=== PATIENT | female | born 1975 | race Caucasian/White ===

== ENCOUNTER 2020-06-12 14:00 | Inpatient (IN) ==
[2020-06-12 14:50] LABS: Basophils # (auto) 0.04 K/uL (0-0.2); Basophils % (auto) 0.4 %; Eosinophils # (auto) 0.14 K/uL (0-0.5); Eosinophils % (auto) 1.3 %; Hematocrit (blood only) 44.3 % (37-47); Hemoglobin 15.1 g/dL (12.0-16.0); Immature Granulocytes # (auto) 0.04 K/uL (0.00-0.02); Immature Granulocytes % (auto) 0.4 %; Lymphocytes # (auto) 2.76 K/uL (1.2-3.4); Lymphocytes % (auto) 24.9 %; Mean Corpuscular Hemoglobin 31.8 pg (25-34); Mean Corpuscular Hgb Conc 34.1 g/dL (32-36); Mean Corpuscular Volume 93.3 fL (80-100); Mean Platelet Volume 9.1 fL (7.4-10.4); Monocytes # (auto) 0.76 K/uL (0.11-0.59); Monocytes % (auto) 6.8 %; Neutrophils # (auto) 7.36 K/uL (1.4-6.5); Neutrophils % (auto) 66.2 %; Platelet Count 366 K/uL (130-400); RDW Coefficient of Variation 13.2 % (11.5-14.5); RDW Standard Deviation 45.4 fL (36.4-46.3); Red Blood Count 4.75 M/uL (4.2-5.4)
[2020-06-12 15:07] LABS: Albumin Level 3.7 gm/dl (3.4-5.0); BUN Creatinine Ratio 13.5 (10-20); Calcium 8.9 mg/dl (8.5-10.1); Creatinine Clr Calc Pharmacy 104.2 ml/min; Est GFR (African American) 88.4; Est GFR (Non-African American) 76.3
[2020-06-12 15:10] LABS: Albumin Globulin Ratio 0.9 (0.9-2); Bilirubin,Total 0.5 mg/dl (0.2-1); Globulin 4.2 gm/dl (2.5-4.0); Total Protein 7.9 gm/dl (6.4-8.2)
[2020-06-12] MEDS ORDERED: diphenhydrAMINE 50 MG/ML VIAL IV STA (15:38)
[2020-06-12] MEDS ORDERED: PROCHLORPERAZINE 2 ML IV ONE (15:38)
--- NOTE | 2020-06-12 15:39 | XRay Report ---
XR chest 1V portable HISTORY: Malaise. illness COMPARISON: None. FINDINGS: The lungs are clear. Cardiac silhouette is normal in size. No pleural effusions. No pneumot horax. IMPRESSION: No acute process. ACT 112: Negative or not required by law. Electronically signed by: Haresh Vernon M.D. 06/12/2020 3:37 PM
[2020-06-12 15:58] LABS: Influenza A virus by PCR Negative (Neg); Influenza B virus by PCR Negative (Neg); RSV by PCR Negative (Neg); SARS CoV2 RNA(COVID-19) InHosp NEGATIVE (Negative)
[2020-06-12] MEDS ORDERED: HYDROmorphone INJ 0.5 MG/0.5 ML SYR IV STA (15:58)
[2020-06-12 17:54] LABS: Total Protein CSF 48.8 mg/dl (15-45)
[2020-06-12 18:05] LABS: CSF Count Tube # 4
[2020-06-12 18:06] LABS: Appearance CSF Clear
[2020-06-12 18:07] LABS: CSF Xanthrochromic No xanthochromia; Color CSF Colorless; Red Blood Cell CSF (A) 0 /uL (0-); Red Blood Cell CSF (B) 0 /uL (0-); White Blood Cell CSF (B) 158 /uL (0-5)
[2020-06-12 18:08] LABS: White Blood Cell CSF (A) 156 /uL (0-5)
[2020-06-12] MEDS ORDERED: VANCOMYCIN HCL 2,750 MG in SODIUM CHLORIDE 0.9% 500 ML IV ONE (18:17)
[2020-06-12] MEDS ORDERED: VANCOMYCIN CONSULT ACTIVE PRN (18:17)
[2020-06-12] MEDS ORDERED: cefTRIAXone SODIUM 2,000 MG/70 ML BAG IV STA (18:17)
[2020-06-12] MEDS ORDERED: ACYCLOVIR CONSULT ACTIVE PRN (18:41)
[2020-06-12] MEDS ORDERED: ACYCLOVIR SOD IV ONE (18:45)
[2020-06-12] MEDS ORDERED: DEXTROSE 5% IV ONE (18:45)
--- NOTE | 2020-06-12 19:21 | Fluoroscopy Report ---
FL lumbar puncture diagnostic CLINICAL HISTORY: 44 years-old Female with headache, pseudotumor. Acute headache PROCEDURE: The risks, benefits, and alternatives to the procedure is discussed with the patient who v oiced understanding. Written informed consent was obtained. The patient was placed prone on the fluor oscopy table. The lower back was prepped and draped in the usual sterile fashion. 1% lidocaine was us ed for local anesthesia. A 20-gauge spinal needle was inserted into the L4-L5 interlaminar space, and approximately 7 mL of clear colorless cerebrospinal fluid was removed. CSF return was delayed and du e to the patient experiencing nausea and restlessness, no additional fluid was obtained. There were n o immediate complications. The patient was then transported back to the emergency room for further wo rkup and treatment. Opening pressure was 15 cm H2O. Fluoroscopy time: 0.5 minutes. IMPRESSION: Successful fluoroscopic guided lumbar puncture. ACT 112: Negative or not required by law. The above report was generated using voice recognition software. It may contain grammatical, syntax o r spelling errors. Electronically signed by: Seth Murphy M.D. 06/12/2020 7:20 PM
--- NOTE | 2020-06-12 19:56 | Communication Note ---
Date of Service: June 12, 2020 Imaging reports from [facility] outpatient records: Brain MRI w/o contrast 06/06/20: IMPRESSION: 1. No acute infarction. 2. Several small foci of subcortical white matter T2 weighted hyperintensities bilaterally, the largest LEFT posterior frontal lobe, broad differential diagnosis as above. Brain MRI w/ contrast 06/08/20: IMPRESSION: 1. No pathologic enhancement of the head detected. No evidence of intracranial hypotension. 2. Given presence of white matter lesions, hearing and vision disturbance along with patient demographics, consider further clinical assessment to exclude Susac syndrome Head/Neck CTA 06/08/20: IMPRESSION: 1. No proximal large vessel occlusion or definitive focal aneurysm is identified. 2. origin of the right posterior cerebral artery. 3. No hemodynamically significant stenosis is identified within the common or extracranial internal carotid arteries. 4. Ascending aorta measures 4 cm in diameter. Vascular surgery consultation and a CTA of the chest may be performed for further evaluation. 5. Multilevel degenerative changes of the cervical spine as described, most prominent at C5-6. 6. Nonspecific mildly enlarged bilateral segment II lymph nodes. Clinical correlation is recommended.
[2020-06-12 20:07] LABS: Cryptococcus neoformans/ga PCR Not Detected (NotDetected); Cytomegalovirus PCR Not Detected (NotDetected); Enterovirus PCR Not Detected (NotDetected); Escherichia coli K1 PCR Not Detected (NotDetected); Haemophilius influenzae PCR Not Detected (NotDetected); Herpes Simplex Virus 1 PCR Not Detected (NotDetected); Herpes Simplex Virus 2 PCR Not Detected (NotDetected); Human Herpes Virus 6 PCR Not Detected (NotDetected); Human Parechovirus PCR Not Detected (NotDetected); Listeria monocytogenes PCR Not Detected (NotDetected); Neisseria meningitidis PCR Not Detected (NotDetected); Streptococcus agalactiae PCR Not Detected (NotDetected); Streptococcus pneumoniae PCR Not Detected (NotDetected)
[2020-06-12 20:12] LABS: Varicella Zoster Virus PCR DETECTED (NotDetected)
[2020-06-12 20:25] LABS: Bilirubin Urine Negative (Negative); Blood Urine Negative (Negative); Color Urine Yellow; Glucose Urine UA Negative (Negative); Ketones Urine Negative (Negative); Leukocyte Esterase Urine Negative (Negative); Nitrite Urine Negative (Negative); Protein Urine Negative (Negative); Specific Gravity Urine 1.017 (1.000-1.030); Urobilinogen Urine Negative (Negative)
[2020-06-12 20:26] LABS: Appearance Urine Clear (Clear)
--- NOTE | 2020-06-12 21:15 | History & Physical Report ---
Date of Service June 12, 2020 Assessment & Plan (1) Aseptic meningitis: Secondary to varicella Pt presents w/ headache, rash and low grade fever of 10 days brain images obtained and r/o 'ed acute process such as hemorrhage, mass or thrombus now presents in the ED for further eval - underwent LP opening pressure not elevated CSF positive for WBC 156, protein 48 and CSF PCR positive for VZV Pt started on empiric Abx in the ED, will continue vanco, ceftriaxone until final cultx available Add Acyclovir encourage po fluid intake and give IVF to prevent renal injury from acyclovir ID and neurology consulted Ascending aorta 4cm - incidental finding - will obtain echo for now - pt will likely need CTA chest for further evaluation and vascular consult - monitor renal function in the setting of treatment with acyclovir and poss. study w/ contrast Dispo: likely home when medically stable. Pt's updated at the bedside. Code: Full History of Present Illness Chief Complaint: headache, malaise Primary Care Provider: Rebeca Fontana MD Mrs. Figueredo is a 44 y/o F w/hx of migraines who presents with headache and malaise. Pt reports that 10 days ago (06/02-06/03) she developed fever, rash on her chest and a headache. Rash was only on the right side of her chest started at sternum and went upward toward her shoulder, there were several vesicules that very itchy red but almost looked like acne. Her headache was worse than usual and she felt overall unwell. At night she developed chills. In several days later on 06/06, she noted flashes in her one eye and then the other eys as well. She developed muffled hearing. This was concerning for her so presented in the ED at [facility], where MRI was done. She was discharged and followed up with neurology next day. She had another MRI and CTA head done as well. She was prescribed topamax and prednisone and was advised to closely follow up with health care providers. Today however she felt worse overall, very weak, hardly able to stand. She feels that her headache is somewhat better actually but overall she feels worse. She also reports some discomfort when bending her neck, feels some pain down the spine. She called neurology about her symptoms and was advised to present to the ED. In the ED LP was obtained and pt was started on IV antiobiotics for presumed poss. meningitis. Allergies Allergy/AdvReac Type Severity Reaction Status Date / Time Sulfa (Sulfonamide Allergy Intermediate Rash Verified 06/12/20 16:37 Antibiotics) latex Allergy Mild Rash Verified 06/12/20 16:12 Narcotics AdvReac Intermediate Nausea,vomiting Uncoded 06/12/20 16:37 and chest pain Home Medications Medication Instructions Recorded Confirmed Type prochlorperazine maleate 10 mg PO Q8H PRN 06/12/20 06/12/20 History rizatriptan 10 mg PO DIRECTED PRN MDD 20 06/12/20 06/12/20 History MG/24 HOURS topiramate 25 mg PO HS 06/12/20 06/12/20 History trazodone 50 mg PO .HOLD 06/12/20 06/12/20 History Past Med/Surg History Medical History (Updated 06/13/20 @ 00:53 by Chet Hines MD) Migraine with aura Surgical History (Updated 06/12/20 @ 21:10 by Chet Hines MD) History of History of carpal tunnel surgery History of esophagogastroduodenoscopy (EGD) History of partial hysterectomy Hx of removal of ovary S/P colonoscopy Family History (Updated 06/12/20 @ 21:08 by Chet Hines MD) Mother Breast cancer Sister Breast cancer Brother Diabetes Father Diabetes Father Hypertension Daughter Asthma Mother Migraines Daughter Migraines Social History Smoking Status: Current every day smoker Tobacco Cessation Education Requested by Patient: No Hx Alcohol Use: Yes Hx Substance Use: No Preferred Language: Serbian Communication Ability: Effective Beliefs That Will Affect Care: None Current Living Situation: Spouse Other Information That Helps Us Care for You: No Feels Safe at Home: Yes Safety Concerns: Feels Safe At This Time Review of Systems Review of Systems: All systems reviewed & are unremarkable except as noted in HPI & below Constitutional: + fever (on and off) and + fatigue Eyes: + flashes Ear, Nose, Mouth, Throat: muffled hearing Respiratory: no cough and no dyspnea Cardiovascular: no chest pain and no palpitations Gastrointestinal: no abdominal pain, no nausea and no vomiting Integumentary: + Vesicular rash on chest Psychiatric: no problem reported Physical Exam Constitutional: WD/WN, vitals as above + obese Eyes: PERRL, conjunctivae normal, anicteric sclerae ENMT: external ear and nose normal, oropharynx normal Neck: trachea midline, no thyromegaly normal visual inspection Respiratory: normal respiratory effort, lungs clear to auscultation Auscultation: no crackles, no rhonchi and no wheezes Cardiovascular: RRR, no murmur, no edema Chest (Breasts): Chest: normal inspection of chest Gastrointestinal (Abdomen): Inspection/Auscultation: abdomen normal to inspection and normal bowel sounds; abdomen not distended Percussion/Palpation: abdomen soft; abdomen nontender, no guarding and abdomen not rigid Musculoskeletal: no cyanosis or clubbing, extremities motor strength 5/5 Head/Neck/Chest: normocephalic and head atraumatic Skin: + rash (right upper chest, dried vesicles) Neurologic: PERRL, EOMI, accommodation nl, no face palsy, no dysarthria moves all extremities and awake Motor/Sensory: no tremor neck flexion causes discomfort down the spine Psychiatric: A+Ox3, euthymic affect Genitourinary: no CVA tenderness Lymphatic: no lymphedema Results & Data Results & Data ([facility]) Vital Signs (Past 12 Hours) Vital Signs Temp Pulse Resp BP BP Pulse Ox 06/12/20 20:08 87 16 97 06/12/20 19:30 89 22 122/88 100 06/12/20 19:00 88 15 154/77 H 96 06/12/20 18:30 77 17 144/86 H 98 06/12/20 18:26 78 14 149/87 H 99 06/12/20 18:00 75 18 149/87 H 96 06/12/20 17:30 73 16 133/97 98 06/12/20 17:23 80 20 127/71 99 06/12/20 17:22 99 06/12/20 16:30 96 H 17 132/80 96 06/12/20 16:00 85 18 129/90 99 06/12/20 15:37 18 122/88 06/12/20 15:30 92 H 16 122/88 99 06/12/20 15:24 99 H 21 99 06/12/20 15:16 86 15 152/98 H 100 06/12/20 14:04 36.3 C L 106 H 20 144/101 H 100 Laboratory Results 06/12/20 06/12/20 06/12/20 Range/Units 20:13 17:00 17:00 WBC (4.8-10.8) K/uL RBC (4.2-5.4) M/uL Hgb (12.0-16.0) g/dL Hct (37-47) % MCV (80-100) fL MCH (25-34) pg MCHC (32-36) g/dL RDW Std Deviation (36.4-46.3) fL RDW Coeff of Haydee (11.5-14.5) % Plt Count (130-400) K/uL MPV (7.4-10.4) fL Immature Gran % (Auto) % Neut % (Auto) % Lymph % (Auto) % Grimes % (Auto) % Eos % (Auto) % Baso % (Auto) % Neut # (Auto) (1.4-6.5) K/uL Lymph # (Auto) (1.2-3.4) K/uL Grimes # (Auto) (0.11-0.59) K/uL Eos # (Auto) (0-0.5) K/uL Baso # (Auto) (0-0.2) K/uL Immature Gran # (Auto) (0.00-0.02) K/uL Sodium (136-145) mmol/L Potassium (3.5-5.1) mmol/L Chloride (98-107) mmol/L Carbon Dioxide (21-32) mmol/L Anion Gap (3-11) BUN (7-18) mg/dl Creatinine (0.6-1.2) mg/dl Est Cr Clr Drug Dosing ml/min Est GFR ( Amer) Est GFR (Non-Af Amer) BUN/Creatinine Ratio (10-20) Glucose (70-99) mg/dl Calcium (8.5-10.1) mg/dl Total Bilirubin (0.2-1) mg/dl AST (15-37) U/L ALT (12-78) U/L Alkaline Phosphatase (45-117) U/L Total Protein (6.4-8.2) gm/dl Albumin (3.4-5.0) gm/dl Globulin (2.5-4.0) gm/dl Albumin/Globulin Ratio (0.9-2) Urine Color Yellow Urine Appearance Clear (Clear) Urine pH 5.0 (4.5-7.5) Ur Specific [place] 1.017 (1.000-1.030) Urine Protein Negative (Negative) Urine Glucose (UA) Negative (Negative) Urine Ketones Negative (Negative) Urine Blood Negative (Negative) Urine Nitrite Negative (Negative) Urine Bilirubin Negative (Negative) Urine Urobilinogen Negative (Negative) Ur Leukocyte Esterase Negative (Negative) Fld Lyme DNA (PCR) Fluid Comment CSF Appearance CSF Color Xanthrochromic CSF WBC (0-5) /uL CSF RBC (0-) /uL CSF Cell Count Tube # CSF Mononuclear WBCs % CSF Polynuclear WBCs % CSF Chemistry Tube # CSF Glucose (40-70) mg/dl CSF Total Protein (15-45) mg/dl CSF C.neoform/gat PCR Not Detected (NotDetected) CSF CMV DNA (PCR) Not Detected (NotDetected) CSF Enterovirus (PCR) Not Detected (NotDetected) CSF E. coli K1 (PCR) Not Detected (NotDetected) CSF H. influenzae (PCR) Not Detected (NotDetected) CSF HSV I (PCR) Not Detected (NotDetected) CSF HSV II (PCR) Not Detected (NotDetected) CSF HHV 6 (PCR) Not Detected (NotDetected) CSF L.monocytogenes PCR Not Detected (NotDetected) CSF N. meningitidis PCR Not Detected (NotDetected) CSF Parechovirus (PCR) Not Detected (NotDetected) CSF S. agalactiae (PCR) Not Detected (NotDetected) CSF S. pneumoniae (PCR) Not Detected (NotDetected) CSF VZV DNA (PCR) DETECTED A* (NotDetected) Lyme Specimen Source COVID-19 Eval Order SARS-CoV-2 (PCR) (Negative) Herpes Simplex Culture Pending Influenza Type A (PCR) (Neg) Influenza Type B (PCR) (Neg) RSV (RT-PCR) (Neg) 06/12/20 06/12/20 06/12/20 Range/Units 17:00 17:00 17:00 WBC (4.8-10.8) K/uL RBC (4.2-5.4) M/uL Hgb (12.0-16.0) g/dL Hct (37-47) % MCV (80-100) fL MCH (25-34) pg MCHC (32-36) g/dL RDW Std Deviation (36.4-46.3) fL RDW Coeff of Haydee (11.5-14.5) % Plt Count (130-400) K/uL MPV (7.4-10.4) fL Immature Gran % (Auto) % Neut % (Auto) % Lymph % (Auto) % Grimes % (Auto) % Eos % (Auto) % Baso % (Auto) % Neut # (Auto) (1.4-6.5) K/uL Lymph # (Auto) (1.2-3.4) K/uL Grimes # (Auto) (0.11-0.59) K/uL Eos # (Auto) (0-0.5) K/uL Baso # (Auto) (0-0.2) K/uL Immature Gran # (Auto) (0.00-0.02) K/uL Sodium (136-145) mmol/L Potassium (3.5-5.1) mmol/L Chloride (98-107) mmol/L Carbon Dioxide (21-32) mmol/L Anion Gap (3-11) BUN (7-18) mg/dl Creatinine (0.6-1.2) mg/dl Est Cr Clr Drug Dosing ml/min Est GFR ( Amer) Est GFR (Non-Af Amer) BUN/Creatinine Ratio (10-20) Glucose (70-99) mg/dl Calcium (8.5-10.1) mg/dl Total Bilirubin (0.2-1) mg/dl AST (15-37) U/L ALT (12-78) U/L Alkaline Phosphatase (45-117) U/L Total Protein (6.4-8.2) gm/dl Albumin (3.4-5.0) gm/dl Globulin (2.5-4.0) gm/dl Albumin/Globulin Ratio (0.9-2) Urine Color Urine Appearance (Clear) Urine pH (4.5-7.5) Ur Specific [place] (1.000-1.030) Urine Protein (Negative) Urine Glucose (UA) (Negative) Urine Ketones (Negative) Urine Blood (Negative) Urine Nitrite (Negative) Urine Bilirubin (Negative) Urine Urobilinogen (Negative) Ur Leukocyte Esterase (Negative) Fld Lyme DNA (PCR) Pending Fluid Comment CSF Appearance Clear CSF Color Colorless Xanthrochromic No xanthochromia CSF WBC 156 H* (0-5) /uL CSF RBC 0 (0-) /uL CSF Cell Count Tube # 4 CSF Mononuclear WBCs 100.0 % CSF Polynuclear WBCs 0.0 % CSF Chemistry Tube # 2 CSF Glucose 48 (40-70) mg/dl CSF Total Protein 48.8 H (15-45) mg/dl CSF C.neoform/gat PCR (NotDetected) CSF CMV DNA (PCR) (NotDetected) CSF Enterovirus (PCR) (NotDetected) CSF E. coli K1 (PCR) (NotDetected) CSF H. influenzae (PCR) (NotDetected) CSF HSV I (PCR) (NotDetected) CSF HSV II (PCR) (NotDetected) CSF HHV 6 (PCR) (NotDetected) CSF L.monocytogenes PCR (NotDetected) CSF N. meningitidis PCR (NotDetected) CSF Parechovirus (PCR) (NotDetected) CSF S. agalactiae (PCR) (NotDetected) CSF S. pneumoniae (PCR) (NotDetected) CSF VZV DNA (PCR) (NotDetected) Lyme Specimen Source Pending COVID-19 Eval Order SARS-CoV-2 (PCR) (Negative) Herpes Simplex Culture Influenza Type A (PCR) (Neg) Influenza Type B (PCR) (Neg) RSV (RT-PCR) (Neg) 06/12/20 06/12/20 06/12/20 Range/Units 14:25 14:25 14:20 WBC 11.10 H (4.8-10.8) K/uL RBC 4.75 (4.2-5.4) M/uL Hgb 15.1 (12.0-16.0) g/dL Hct 44.3 (37-47) % MCV 93.3 (80-100) fL MCH 31.8 (25-34) pg MCHC 34.1 (32-36) g/dL RDW Std Deviation 45.4 (36.4-46.3) fL RDW Coeff of Haydee 13.2 (11.5-14.5) % Plt Count 366 (130-400) K/uL MPV 9.1 (7.4-10.4) fL Immature Gran % (Auto) 0.4 % Neut % (Auto) 66.2 % Lymph % (Auto) 24.9 % Grimes % (Auto) 6.8 % Eos % (Auto) 1.3 % Baso % (Auto) 0.4 % Neut # (Auto) 7.36 H (1.4-6.5) K/uL Lymph # (Auto) 2.76 (1.2-3.4) K/uL Grimes # (Auto) 0.76 H (0.11-0.59) K/uL Eos # (Auto) 0.14 (0-0.5) K/uL Baso # (Auto) 0.04 (0-0.2) K/uL Immature Gran # (Auto) 0.04 H (0.00-0.02) K/uL Sodium 136 (136-145) mmol/L Potassium 4.0 (3.5-5.1) mmol/L Chloride 105 (98-107) mmol/L Carbon Dioxide 27 (21-32) mmol/L Anion Gap 4.0 (3-11) BUN 12 (7-18) mg/dl Creatinine 0.92 (0.6-1.2) mg/dl Est Cr Clr Drug Dosing 104.2 ml/min Est GFR ( Amer) 88.4 Est GFR (Non-Af Amer) 76.3 BUN/Creatinine Ratio 13.5 (10-20) Glucose 111 H (70-99) mg/dl Calcium 8.9 (8.5-10.1) mg/dl Total Bilirubin 0.5 (0.2-1) mg/dl AST 9 L (15-37) U/L ALT 40 (12-78) U/L Alkaline Phosphatase 107 (45-117) U/L Total Protein 7.9 (6.4-8.2) gm/dl Albumin 3.7 (3.4-5.0) gm/dl Globulin 4.2 H (2.5-4.0) gm/dl Albumin/Globulin Ratio 0.9 (0.9-2) Urine Color Urine Appearance (Clear) Urine pH (4.5-7.5) Ur Specific [place] (1.000-1.030) Urine Protein (Negative) Urine Glucose (UA) (Negative) Urine Ketones (Negative) Urine Blood (Negative) Urine Nitrite (Negative) Urine Bilirubin (Negative) Urine Urobilinogen (Negative) Ur Leukocyte Esterase (Negative) Fld Lyme DNA (PCR) Fluid Comment CSF Appearance CSF Color Xanthrochromic CSF WBC (0-5) /uL CSF RBC (0-) /uL CSF Cell Count Tube # CSF Mononuclear WBCs % CSF Polynuclear WBCs % CSF Chemistry Tube # CSF Glucose (40-70) mg/dl CSF Total Protein (15-45) mg/dl CSF C.neoform/gat PCR (NotDetected) CSF CMV DNA (PCR) (NotDetected) CSF Enterovirus (PCR) (NotDetected) CSF E. coli K1 (PCR) (NotDetected) CSF H. influenzae (PCR) (NotDetected) CSF HSV I (PCR) (NotDetected) CSF HSV II (PCR) (NotDetected) CSF HHV 6 (PCR) (NotDetected) CSF L.monocytogenes PCR (NotDetected) CSF N. meningitidis PCR (NotDetected) CSF Parechovirus (PCR) (NotDetected) CSF S. agalactiae (PCR) (NotDetected) CSF S. pneumoniae (PCR) (NotDetected) CSF VZV DNA (PCR) (NotDetected) Lyme Specimen Source COVID-19 Eval Order SARS-CoV-2 (PCR) NEGATIVE (Negative) Herpes Simplex Culture Influenza Type A (PCR) Negative (Neg) Influenza Type B (PCR) Negative (Neg) RSV (RT-PCR) Negative (Neg) 06/12/20 Range/Units 14:20 WBC (4.8-10.8) K/uL RBC (4.2-5.4) M/uL Hgb (12.0-16.0) g/dL Hct (37-47) % MCV (80-100) fL MCH (25-34) pg MCHC (32-36) g/dL RDW Std Deviation (36.4-46.3) fL RDW Coeff of Haydee (11.5-14.5) % Plt Count (130-400) K/uL MPV (7.4-10.4) fL Immature Gran % (Auto) % Neut % (Auto) % Lymph % (Auto) % Grimes % (Auto) % Eos % (Auto) % Baso % (Auto) % Neut # (Auto) (1.4-6.5) K/uL Lymph # (Auto) (1.2-3.4) K/uL Grimes # (Auto) (0.11-0.59) K/uL Eos # (Auto) (0-0.5) K/uL Baso # (Auto) (0-0.2) K/uL Immature Gran # (Auto) (0.00-0.02) K/uL Sodium (136-145) mmol/L Potassium (3.5-5.1) mmol/L Chloride (98-107) mmol/L Carbon Dioxide (21-32) mmol/L Anion Gap (3-11) BUN (7-18) mg/dl Creatinine (0.6-1.2) mg/dl Est Cr Clr Drug Dosing ml/min Est GFR ( Amer) Est GFR (Non-Af Amer) BUN/Creatinine Ratio (10-20) Glucose (70-99) mg/dl Calcium (8.5-10.1) mg/dl Total Bilirubin (0.2-1) mg/dl AST (15-37) U/L ALT (12-78) U/L Alkaline Phosphatase (45-117) U/L Total Protein (6.4-8.2) gm/dl Albumin (3.4-5.0) gm/dl Globulin (2.5-4.0) gm/dl Albumin/Globulin Ratio (0.9-2) Urine Color Urine Appearance (Clear) Urine pH (4.5-7.5) Ur Specific [place] (1.000-1.030) Urine Protein (Negative) Urine Glucose (UA) (Negative) Urine Ketones (Negative) Urine Blood (Negative) Urine Nitrite (Negative) Urine Bilirubin (Negative) Urine Urobilinogen (Negative) Ur Leukocyte Esterase (Negative) Fld Lyme DNA (PCR) Fluid Comment CSF Appearance CSF Color Xanthrochromic CSF WBC (0-5) /uL CSF RBC (0-) /uL CSF Cell Count Tube # CSF Mononuclear WBCs % CSF Polynuclear WBCs % CSF Chemistry Tube # CSF Glucose (40-70) mg/dl CSF Total Protein (15-45) mg/dl CSF C.neoform/gat PCR (NotDetected) CSF CMV DNA (PCR) (NotDetected) CSF Enterovirus (PCR) (NotDetected) CSF E. coli K1 (PCR) (NotDetected) CSF H. influenzae (PCR) (NotDetected) CSF HSV I (PCR) (NotDetected) CSF HSV II (PCR) (NotDetected) CSF HHV 6 (PCR) (NotDetected) CSF L.monocytogenes PCR (NotDetected) CSF N. meningitidis PCR (NotDetected) CSF Parechovirus (PCR) (NotDetected) CSF S. agalactiae (PCR) (NotDetected) CSF S. pneumoniae (PCR) (NotDetected) CSF VZV DNA (PCR) (NotDetected) Lyme Specimen Source COVID-19 Eval Order Cov[facility]Rsv at [facility] SARS-CoV-2 (PCR) (Negative) Herpes Simplex Culture Influenza Type A (PCR) (Neg) Influenza Type B (PCR) (Neg) RSV (RT-PCR) (Neg) Diagnostic Findings Imaging reports from [facility] outpatient records: Brain MRI w/o contrast 06/06/20: IMPRESSION: 1. No acute infarction. 2. Several small foci of subcortical white matter T2 weighted hyperintensities bilaterally, the largest LEFT posterior frontal lobe, broad differential diagnosis as above. Brain MRI w/ contrast 06/08/20: IMPRESSION: 1. No pathologic enhancement of the head detected. No evidence of intracranial hypotension. 2. Given presence of white matter lesions, hearing and vision disturbance along with patient demographics, consider further clinical assessment to exclude Susac syndrome Head/Neck CTA 06/08/20: IMPRESSION: 1. No proximal large vessel occlusion or definitive focal aneurysm is identified. 2. origin of the right posterior cerebral artery. 3. No hemodynamically significant stenosis is identified within the common or extracranial internal carotid arteries. 4. Ascending aorta measures 4 cm in diameter. Vascular surgery consultation and a CTA of the chest may be performed for further evaluation. 5. Multilevel degenerative changes of the cervical spine as described, most prominent at C5-6. 6. Nonspecific mildly enlarged bilateral segment II lymph nodes. Clinical correlation is recommended. Code Status & VTE Plan VTE Prophylaxis Plan VTE Prophylaxis will be ordered: Yes
[2020-06-13] MEDS ORDERED: BUTALBITAL/ACETAMIN/CAFFEINE TAB PO PRN (00:43)
[2020-06-13] MEDS ORDERED: VANCOMYCIN CONSULT ACTIVE PRN (00:43)
[2020-06-13] MEDS ORDERED: HYDROmorphone INJ 0.5 MG/0.5 ML SYR IV PRN (00:43)
[2020-06-13] MEDS ORDERED: ONDANSETRON INJ 2 MG/ML 2 ML VIAL IV PRN (00:43)
[2020-06-13] MEDS: TOPIRAMATE 25 MG TAB PO SCH ×2 (02:37→20:23)
[2020-06-13] MEDS: SODIUM CHLORIDE 0.9% 1000ML 1,000 ML IV SCH ×3 (02:38→18:53)
[2020-06-13] MEDS ORDERED: VANCOMYCIN HCL 1,750 MG in SODIUM CHLORIDE 0.9% 500 ML IV SCH (04:00)
[2020-06-13] MEDS: ACYCLOVIR SOD IV SCH ×3 (06:20→20:23)
[2020-06-13] MEDS: DEXTROSE 5% IV SCH ×3 (06:20→20:23)
[2020-06-13 06:43] LABS: Hematocrit (blood only) 41.8 % (37-47); Hemoglobin 14.3 g/dL (12.0-16.0); Mean Corpuscular Hemoglobin 31.8 pg (25-34); Mean Corpuscular Hgb Conc 34.2 g/dL (32-36); Mean Corpuscular Volume 92.9 fL (80-100); Mean Platelet Volume 9.2 fL (7.4-10.4); Platelet Count 346 K/uL (130-400); RDW Coefficient of Variation 13.4 % (11.5-14.5); RDW Standard Deviation 45.9 fL (36.4-46.3); White Blood Count 10.45 K/uL (4.8-10.8)
[2020-06-13 07:11] LABS: BUN Creatinine Ratio 14.3 (10-20); Calcium 8.1 mg/dl (8.5-10.1); Creatinine Clr Calc Pharmacy 115.5 ml/min; Est GFR (African American) 100.1; Est GFR (Non-African American) 86.4
[2020-06-13] MEDS ORDERED: cefTRIAXone SODIUM 2,000 MG in DEXTROSE 5% 50 ML IV SCH ×2 (08:00→09:00)
--- NOTE | 2020-06-13 09:23 | Pharmacy Report ---
Pharmacy Abx Initial Consult - Date of Service June 13, 2020 - Pharmacy Dosing Scope Date of Consult: 06/12/20 Consultation requested by: ROBERTO Cedeno Pharmacy is consulted to initiate Vancomycin and Acyclovir IV dosing therapy, order appropriate labs and adjust drug dose/frequency. - Subjective The patient is a 44 year old F admitted on 06/12/20 19:42. - Objective Height: 5 ft 4 in Weight: 127.3 kg Vital Signs (Past 12hrs): Vital Signs Temp Pulse Pulse Resp BP BP Pulse Ox 06/13/20 08:09 37.0 C 89 20 116/76 97 06/13/20 07:00 90 06/13/20 00:43 102 H 06/13/20 00:35 36.7 C 93 H 18 126/80 96 06/12/20 22:30 88 22 150/87 H 98 06/12/20 22:00 90 19 142/85 H 06/12/20 21:30 92 H 18 150/83 H 96 Lab Results (24hrs): Laboratory Tests (24 Hours) 06/13/20 06/13/20 06/12/20 06:20 06:20 14:25 WBC 10.45 Neut # (Auto) Creatinine 0.83 0.92 Est Cr Clr Drug Dosing 115.5 104.2 06/12/20 14:25 WBC 11.10 H Neut # (Auto) 7.36 H Creatinine Est Cr Clr Drug Dosing Micro Results: 06/12/20 17:00 Gram Stain - Final Cerebral Spinal Fluid CSF Culture - Pending - Risk Factors for Resistance * None - Assessment & Plan Assessment 44 year old F admitted on 06/12/20 secondary to headache and malaise * PMHx significant for migraines. Developed a fever and raash on her chest with associated headache about 10 days ago. 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 Renal fxn improved slightly. * ID and Neurology are consulted Plan Vancomycin, Ceftriaxone and Acyclovir for treatment of bacterial/viral meningitis Vancomycin IV * Loading dose: 2750 mg (22 mg/kg) * Maintenance dose: 1750 mg IV (14 mg/kg) every 10 hours * Goal trough level: 15 to 20 mcg/mL * Trough level ordered for morning Ceftriaxone (not a pharmacy consult) * 2 g IV every 12 hours * Appropriate dose for indication of meningitis Acyclovir * 840 mg IV every 8 hours * Recommend dosing per IDSA is 10-15 mg/kg IV every 8 hours for 10-14 days * Current dosing is 10 mg/kg per adjusted body weight for BMI of 48 Pharmacy will continue to follow and will adjust dose/frequency as necessary. Thank you.
--- NOTE | 2020-06-13 10:12 | Emergency Department Note ---
Impression & Plan Aseptic meningitis, Positional headache ED Provider Note NAME: YOLANDE IGNACIO AGE: 44 SEX: F ARRIVES VIA: Walk-In INFORMANT: Patient, ED PROVIDER(S): Milena Trent MD CHIEF COMPLAINT: MEREDITH PLAN: Disposition: Inpatient Condition: Fair Referral: Hospitalist MEDICAL DECISION MAKING: This pt was evaluated and appeared to be in no distress. IV access was obtained and lab work was drawn. Pt was placed on the airline transport pilot and hydrated with NSS. Pt was medicated with IV compazine and benadryl. Records were reviewed and previous head imaging was negative. Radiology was contacted for LP d/t body habitus and pt is noted to have 156 WBC in CSF. IV ceftriaxone and IV vancomycin were ordered. Pt does seem to have a viral etiology and a biofire has been sent. Case was d/w hospitalist service for further management. Hospitalist ROBERTO Cedeno will add acyclovir IV per our conversation. Pt is aware of plan and agrees. Triage Nursing notes reviewed and agree them. Prior medical records reviewed [facility] Vital Signs: reviewed and remarkable for no significant abnormalities Differential diagnosis: Migraine headache, meningitis, sinusitis, CO exposure, ICH, SAH, infection, tumor, headache, sinus thrombosis, arterial dissection, as well as other pathologies. ER treatment provided: IV compazine IV benadryl IV vanco IV ceftriaxone Diagnostics interpreted by me: ECG: NSR at 82 bpm, no ectopy, no ST change, no PVC, no PAC. Normal axis. Cardiac Monitoring: An order for cardiac monitoring was placed and pt is noted to be in a NSR at 86 bpm. Laboratory studies: See below Imaging studies: XR chest 1V portable HISTORY: Malaise. illness COMPARISON: None. FINDINGS: The lungs are clear. Cardiac silhouette is normal in size. No pleural effusions. No pneumothorax. IMPRESSION: No acute process. ACT 112: Negative or not required by law. Electronically signed by: Haresh Vernon M.D. 06/12/2020 3:37 PM Dictated: 06/12/201534Transcribed: 06/12/201534 HPI: 44/F arrives for evaluation of MEREDITH. Pt states she has been dealing with this pain for the last week. Pt states she has been seen by ED in [employer] and by neurology Dr. Bermudez. She has had a CT scan and 2 MRIs, but the workups are negative. Pt has minimal relief from OTC medications and has been trying a triptan without much success. She denies fevers, visual changes, vomiting. ROS: See above HPI for pertinent positives & negatives. A total of 10 systems reviewed and were otherwise negative. PAST MEDICAL HISTORY:See Below PAST SURGICAL HISTORY:See Below FAMILY HISTORY:See Below SOCIAL HISTORY:See Below HOME MEDICATIONS:See Below ALLERGIES:See Below VITALS:See Below PHYSICAL EXAMINATION: Vital signs reviewed. General: Well-appearing 44 yo female, in no significant distress. HEENT: No scleral icterus, PERRLA, neck supple. Atraumatic. Cardiovascular: Regular rate and rhythm, no extra sounds. Pulmonary: Clear to auscultation bilaterally, normal work of breathing. Abdomen: Soft, nontender, nondistended, positive bowel sounds. Musculoskeletal: Atraumatic, no peripheral edema. Neurologic: Patient awake alert and oriented x 3, full strength in all 4 extremities. Cranial nerves 2 through 12 grossly intact. No discomfort to neck flexion but MEREDITH is positional. Skin: Warm, dry, no rash Milena Trent MD Past Med/Surg History Medical History (Updated 06/16/20 @ 23:13 by Milena Trent MD) Migraine with aura Surgical History History of History of carpal tunnel surgery History of esophagogastroduodenoscopy (EGD) History of partial hysterectomy Hx of removal of ovary S/P colonoscopy Family History Mother Breast cancer Sister Breast cancer Brother Diabetes Father Diabetes Father Hypertension Daughter Asthma Mother Migraines Daughter Migraines Social History Smoking Status: Current every day smoker Hx Alcohol Use: Yes Hx Substance Use: No Preferred Language: Uzbek Communication Ability: Effective Beliefs That Will Affect Care: None Current Living Situation: Spouse Feels Safe at Home: Yes Assistive Devices: Glasses Allergies Allergies Allergy/AdvReac Type Severity Reaction Status Date / Time Sulfa (Sulfonamide Allergy Intermediate Rash Verified 06/12/20 16:37 Antibiotics) latex Allergy Mild Rash Verified 06/12/20 16:12 Narcotics AdvReac Intermediate Nausea,vomiting Uncoded 06/12/20 16:37 and chest pain Home Meds Home Medications Medication Instructions Recorded Confirmed prochlorperazine maleate 10 mg PO Q8H PRN 06/12/20 06/12/20 topiramate 25 mg PO HS 06/12/20 06/12/20 trazodone 50 mg PO .HOLD 06/12/20 06/12/20 Previous Rx's Medication Instructions Recorded Acyclovir Consult Active 1 dose NOT APPLICABLE UD PRN #0 06/15/20 Results & Data (ED) Vital Signs Vital Signs - 24 hr 06/12/20 14:04 06/12/20 15:16 06/12/20 15:24 Temperature 36.3 C L Temperature Source Temporal Artery Scan Pulse Rate 106 H 86 99 H Pulse Rate from SpO2 Sensor 86 94 H Respiratory Rate 20 15 21 Respiratory Effort / Characteristics Non-Labored Spontaneous Respiratory Depth Normal Respiratory Pattern Regular Blood Pressure 144/101 H 152/98 H Blood Pressure [Right Arm] Blood Pressure Mean 115 116 Blood Pressure Mean [Right Arm] Blood Pressure Position [Right Arm] Pulse Oximetry 100 100 99 Oxygen Delivery Method Room Air Sepsis Recent Fever Within 48 Hours No Sepsis New/Unexplained Change in Mental Status N/A Sepsis Action Taken by Nursing No Action Required 06/12/20 15:30 06/12/20 15:37 06/12/20 16:00 Temperature Temperature Source Pulse Rate 92 H 85 Pulse Rate from SpO2 Sensor 95 H 84 Respiratory Rate 16 18 18 Respiratory Effort / Characteristics Non-Labored Respiratory Depth Normal Respiratory Pattern Regular Blood Pressure 122/88 129/90 Blood Pressure [Right Arm] 122/88 Blood Pressure Mean 99 103 Blood Pressure Mean [Right Arm] 99 Blood Pressure Position [Right Arm] Sitting Pulse Oximetry 99 99 Oxygen Delivery Method Room Air Sepsis Recent Fever Within 48 Hours Sepsis New/Unexplained Change in Mental Status Sepsis Action Taken by Nursing 06/12/20 16:30 06/12/20 17:22 06/12/20 17:23 Temperature Temperature Source Pulse Rate 96 H 80 Pulse Rate from SpO2 Sensor 93 H 81 80 Respiratory Rate 17 20 Respiratory Effort / Characteristics Respiratory Depth Respiratory Pattern Blood Pressure 132/80 127/71 Blood Pressure [Right Arm] Blood Pressure Mean 97 89 Blood Pressure Mean [Right Arm] Blood Pressure Position [Right Arm] Pulse Oximetry 96 99 99 Oxygen Delivery Method Sepsis Recent Fever Within 48 Hours Sepsis New/Unexplained Change in Mental Status Sepsis Action Taken by Nursing 06/12/20 17:30 06/12/20 18:00 06/12/20 18:26 Temperature Temperature Source Pulse Rate 73 75 78 Pulse Rate from SpO2 Sensor 73 76 79 Respiratory Rate 16 18 14 Respiratory Effort / Characteristics Respiratory Depth Respiratory Pattern Blood Pressure 133/97 149/87 H 149/87 H Blood Pressure [Right Arm] Blood Pressure Mean 109 107 107 Blood Pressure Mean [Right Arm] Blood Pressure Position [Right Arm] Pulse Oximetry 98 96 99 Oxygen Delivery Method Room Air Sepsis Recent Fever Within 48 Hours Sepsis New/Unexplained Change in Mental Status Sepsis Action Taken by Nursing 06/12/20 18:30 06/12/20 19:00 06/12/20 19:30 Temperature Temperature Source Pulse Rate 77 88 89 Pulse Rate from SpO2 Sensor 75 87 88 Respiratory Rate 17 15 22 Respiratory Effort / Characteristics Respiratory Depth Respiratory Pattern Blood Pressure 144/86 H 154/77 H 122/88 Blood Pressure [Right Arm] Blood Pressure Mean 105 102 99 Blood Pressure Mean [Right Arm] Blood Pressure Position [Right Arm] Pulse Oximetry 98 96 100 Oxygen Delivery Method Room Air Room Air Room Air Sepsis Recent Fever Within 48 Hours Sepsis New/Unexplained Change in Mental Status Sepsis Action Taken by Prison Medications Current Medication List: was personally reviewed by me Laboratory Data Attestation: I reviewed the patient's lab results. Result diagrams: 06/15/20 07:48 06/15/20 07:48 Lab Results 06/12/20 06/12/20 06/12/20 Range/Units 14:20 14:20 14:25 WBC 11.10 H (4.8-10.8) K/uL RBC 4.75 (4.2-5.4) M/uL Hgb 15.1 (12.0-16.0) g/dL Hct 44.3 (37-47) % MCV 93.3 (80-100) fL MCH 31.8 (25-34) pg MCHC 34.1 (32-36) g/dL RDW Std Deviation 45.4 (36.4-46.3) fL RDW Coeff of Haydee 13.2 (11.5-14.5) % Plt Count 366 (130-400) K/uL MPV 9.1 (7.4-10.4) fL Immature Gran % (Auto) 0.4 % Neut % (Auto) 66.2 % Lymph % (Auto) 24.9 % Kane % (Auto) 6.8 % Eos % (Auto) 1.3 % Baso % (Auto) 0.4 % Neut # (Auto) 7.36 H (1.4-6.5) K/uL Lymph # (Auto) 2.76 (1.2-3.4) K/uL Kane # (Auto) 0.76 H (0.11-0.59) K/uL Eos # (Auto) 0.14 (0-0.5) K/uL Baso # (Auto) 0.04 (0-0.2) K/uL Immature Gran # (Auto) 0.04 H (0.00-0.02) K/uL Sodium (136-145) mmol/L Potassium (3.5-5.1) mmol/L Chloride (98-107) mmol/L Carbon Dioxide (21-32) mmol/L Anion Gap (3-11) BUN (7-18) mg/dl Creatinine (0.6-1.2) mg/dl Est Cr Clr Drug Dosing ml/min Est GFR ( Amer) Est GFR (Non-Af Amer) BUN/Creatinine Ratio (10-20) Glucose (70-99) mg/dl Calcium (8.5-10.1) mg/dl Total Bilirubin (0.2-1) mg/dl AST (15-37) U/L ALT (12-78) U/L Alkaline Phosphatase (45-117) U/L Total Protein (6.4-8.2) gm/dl Albumin (3.4-5.0) gm/dl Globulin (2.5-4.0) gm/dl Albumin/Globulin Ratio (0.9-2) Fld Lyme DNA (PCR) (Not Detected) Fluid Comment CSF Appearance CSF Color Xanthrochromic CSF WBC (0-5) /uL CSF RBC (0-) /uL CSF Cell Count Tube # CSF Mononuclear WBCs % CSF Polynuclear WBCs % CSF Chemistry Tube # CSF Glucose (40-70) mg/dl CSF Total Protein (15-45) mg/dl CSF C.neoform/gat PCR (NotDetected) CSF CMV DNA (PCR) (NotDetected) CSF Enterovirus (PCR) (NotDetected) CSF E. coli K1 (PCR) (NotDetected) CSF H. influenzae (PCR) (NotDetected) CSF HSV I (PCR) (NotDetected) CSF HSV II (PCR) (NotDetected) CSF HHV 6 (PCR) (NotDetected) CSF L.monocytogenes PCR (NotDetected) CSF N. meningitidis PCR (NotDetected) CSF Parechovirus (PCR) (NotDetected) CSF S. agalactiae (PCR) (NotDetected) CSF S. pneumoniae (PCR) (NotDetected) CSF VZV DNA (PCR) (NotDetected) Lyme Specimen Source COVID-19 Eval Order CovFluRsv at [facility] SARS-CoV-2 (PCR) NEGATIVE (Negative) Herpes Simplex Culture Influenza Type A (PCR) Negative (Neg) Influenza Type B (PCR) Negative (Neg) RSV (RT-PCR) Negative (Neg) 06/12/20 06/12/20 06/12/20 Range/Units 14:25 17:00 17:00 WBC (4.8-10.8) K/uL RBC (4.2-5.4) M/uL Hgb (12.0-16.0) g/dL Hct (37-47) % MCV (80-100) fL MCH (25-34) pg MCHC (32-36) g/dL RDW Std Deviation (36.4-46.3) fL RDW Coeff of Haydee (11.5-14.5) % Plt Count (130-400) K/uL MPV (7.4-10.4) fL Immature Gran % (Auto) % Neut % (Auto) % Lymph % (Auto) % Kane % (Auto) % Eos % (Auto) % Baso % (Auto) % Neut # (Auto) (1.4-6.5) K/uL Lymph # (Auto) (1.2-3.4) K/uL Kane # (Auto) (0.11-0.59) K/uL Eos # (Auto) (0-0.5) K/uL Baso # (Auto) (0-0.2) K/uL Immature Gran # (Auto) (0.00-0.02) K/uL Sodium 136 (136-145) mmol/L Potassium 4.0 (3.5-5.1) mmol/L Chloride 105 (98-107) mmol/L Carbon Dioxide 27 (21-32) mmol/L Anion Gap 4.0 (3-11) BUN 12 (7-18) mg/dl Creatinine 0.92 (0.6-1.2) mg/dl Est Cr Clr Drug Dosing 104.2 ml/min Est GFR ( Amer) 88.4 Est GFR (Non-Af Amer) 76.3 BUN/Creatinine Ratio 13.5 (10-20) Glucose 111 H (70-99) mg/dl Calcium 8.9 (8.5-10.1) mg/dl Total Bilirubin 0.5 (0.2-1) mg/dl AST 9 L (15-37) U/L ALT 40 (12-78) U/L Alkaline Phosphatase 107 (45-117) U/L Total Protein 7.9 (6.4-8.2) gm/dl Albumin 3.7 (3.4-5.0) gm/dl Globulin 4.2 H (2.5-4.0) gm/dl Albumin/Globulin Ratio 0.9 (0.9-2) Fld Lyme DNA (PCR) (Not Detected) Fluid Comment CSF Appearance Clear CSF Color Colorless Xanthrochromic No xanthochromia CSF WBC 156 H* (0-5) /uL CSF RBC 0 (0-) /uL CSF Cell Count Tube # 4 CSF Mononuclear WBCs 100.0 % CSF Polynuclear WBCs 0.0 % CSF Chemistry Tube # 2 CSF Glucose 48 (40-70) mg/dl CSF Total Protein 48.8 H (15-45) mg/dl CSF C.neoform/gat PCR (NotDetected) CSF CMV DNA (PCR) (NotDetected) CSF Enterovirus (PCR) (NotDetected) CSF E. coli K1 (PCR) (NotDetected) CSF H. influenzae (PCR) (NotDetected) CSF HSV I (PCR) (NotDetected) CSF HSV II (PCR) (NotDetected) CSF HHV 6 (PCR) (NotDetected) CSF L.monocytogenes PCR (NotDetected) CSF N. meningitidis PCR (NotDetected) CSF Parechovirus (PCR) (NotDetected) CSF S. agalactiae (PCR) (NotDetected) CSF S. pneumoniae (PCR) (NotDetected) CSF VZV DNA (PCR) (NotDetected) Lyme Specimen Source COVID-19 Eval Order SARS-CoV-2 (PCR) (Negative) Herpes Simplex Culture Influenza Type A (PCR) (Neg) Influenza Type B (PCR) (Neg) RSV (RT-PCR) (Neg) 06/12/20 06/12/20 06/12/20 Range/Units 17:00 17:00 17:00 WBC (4.8-10.8) K/uL RBC (4.2-5.4) M/uL Hgb (12.0-16.0) g/dL Hct (37-47) % MCV (80-100) fL MCH (25-34) pg MCHC (32-36) g/dL RDW Std Deviation (36.4-46.3) fL RDW Coeff of Haydee (11.5-14.5) % Plt Count (130-400) K/uL MPV (7.4-10.4) fL Immature Gran % (Auto) % Neut % (Auto) % Lymph % (Auto) % Kane % (Auto) % Eos % (Auto) % Baso % (Auto) % Neut # (Auto) (1.4-6.5) K/uL Lymph # (Auto) (1.2-3.4) K/uL Kane # (Auto) (0.11-0.59) K/uL Eos # (Auto) (0-0.5) K/uL Baso # (Auto) (0-0.2) K/uL Immature Gran # (Auto) (0.00-0.02) K/uL Sodium (136-145) mmol/L Potassium (3.5-5.1) mmol/L Chloride (98-107) mmol/L Carbon Dioxide (21-32) mmol/L Anion Gap (3-11) BUN (7-18) mg/dl Creatinine (0.6-1.2) mg/dl Est Cr Clr Drug Dosing ml/min Est GFR ( Amer) Est GFR (Non-Af Amer) BUN/Creatinine Ratio (10-20) Glucose (70-99) mg/dl Calcium (8.5-10.1) mg/dl Total Bilirubin (0.2-1) mg/dl AST (15-37) U/L ALT (12-78) U/L Alkaline Phosphatase (45-117) U/L Total Protein (6.4-8.2) gm/dl Albumin (3.4-5.0) gm/dl Globulin (2.5-4.0) gm/dl Albumin/Globulin Ratio (0.9-2) Fld Lyme DNA (PCR) Not detected (Not Detected) Fluid Comment CSF Appearance CSF Color Xanthrochromic CSF WBC (0-5) /uL CSF RBC (0-) /uL CSF Cell Count Tube # CSF Mononuclear WBCs % CSF Polynuclear WBCs % CSF Chemistry Tube # CSF Glucose (40-70) mg/dl CSF Total Protein (15-45) mg/dl CSF C.neoform/gat PCR Not Detected (NotDetected) CSF CMV DNA (PCR) Not Detected (NotDetected) CSF Enterovirus (PCR) Not Detected (NotDetected) CSF E. coli K1 (PCR) Not Detected (NotDetected) CSF H. influenzae (PCR) Not Detected (NotDetected) CSF HSV I (PCR) Not Detected (NotDetected) CSF HSV II (PCR) Not Detected (NotDetected) CSF HHV 6 (PCR) Not Detected (NotDetected) CSF L.monocytogenes PCR Not Detected (NotDetected) CSF N. meningitidis PCR Not Detected (NotDetected) CSF Parechovirus (PCR) Not Detected (NotDetected) CSF S. agalactiae (PCR) Not Detected (NotDetected) CSF S. pneumoniae (PCR) Not Detected (NotDetected) CSF VZV DNA (PCR) DETECTED A* (NotDetected) Lyme Specimen Source CSF COVID-19 Eval Order SARS-CoV-2 (PCR) (Negative) Herpes Simplex Culture Cancelled Influenza Type A (PCR) (Neg) Influenza Type B (PCR) (Neg) RSV (RT-PCR) (Neg) Administered Medications Discontinued Medications Acetaminophen (Acetaminophen 325 Mg Tab) 650 mg PO Q4H PRN PRN Reason: Pain or Fever Stop: 07/13/20 00:42 Last Admin: 06/14/20 16:47 Dose: 650 mg Documented by: [id number] Admin: 06/14/20 05:39 Dose: 650 mg Documented by: [id number] Admin: 06/13/20 15:37 Dose: 650 mg Documented by: [id number] Diphenhydramine HCl (Diphenhydramine 50 Mg/Ml Vial) 25 mg IV NOW STA Stop: 06/12/20 15:39 Last Admin: 06/12/20 16:00 Dose: 25 mg Documented by: [id number] Hydromorphone HCl (Hydromorphone Inj 0.5 Mg/0.5 Ml Syr) 0.5 mg IV NOW STA Stop: 06/12/20 15:59 Last Admin: 06/12/20 19:47 Dose: Not Given Documented by: [id number] Prochlorperazine (Compazine) 2 mls @ 1 mls/min IV ONE ONE Stop: 06/12/20 15:39 Last Admin: 06/12/20 16:00 Dose: 1 mls/min Documented by: [id number] Ceftriaxone Sodium (Rocephin) 2,000 mg in 70 mls @ 140 mls/hr IV NOW STA Stop: 06/12/20 18:46 Last Infusion: 06/12/20 20:54 Dose: 0 mls/hr Documented by: [id number] Admin: 06/12/20 20:06 Dose: 140 mls/hr Documented by: [id number] Vancomycin HCl 2,750 mg/ (Sodium Chloride) 555 mls @ 200 mls/hr IV NOW ONE Stop: 06/12/20 21:03 Last Infusion: 06/12/20 22:54 Dose: 0 mls/hr Documented by: [id number] Infusion: 06/12/20 20:58 Dose: 200 mls/hr Documented by: [id number] Infusion: 06/12/20 19:56 Dose: 0 mls/hr Documented by: [id number] Admin: 06/12/20 18:42 Dose: 200 mls/hr Documented by: [id number] Acyclovir Sodium 840 mg/ (Dextrose) 266.8 mls @ 250 mls/hr IV NOW ONE Stop: 06/12/20 19:49 Last Infusion: 06/12/20 22:03 Dose: 0 mls/hr Documented by: [id number] Admin: 06/12/20 20:58 Dose: 250 mls/hr Documented by: [id number] Ceftriaxone Sodium 2,000 mg/ (Dextrose) 70 mls @ 100 mls/hr IV Q12H [facility]; Protocol Stop: 06/23/20 07:59 Last Infusion: 06/13/20 10:10 Dose: 0 mls/hr Documented by: [id number] Admin: 06/13/20 08:57 Dose: 100 mls/hr Documented by: [id number] Sodium Chloride (Nss 1000ml) 1,000 mls @ 75 mls/hr IV .[id number] MARIA EUGENIA Stop: 06/13/20 22:54 Last Infusion: 06/14/20 08:13 Dose: 0 mls/hr Documented by: [id number] Admin: 06/13/20 18:53 Dose: 75 mls/hr Documented by: [id number] Infusion: 06/13/20 14:10 Dose: 75 mls/hr Documented by: [id number] Admin: 06/13/20 02:38 Dose: 100 mls/hr Documented by: [id number] Acyclovir Sodium 840 mg/ (Dextrose) 266.8 mls @ 250 mls/hr IV Q8H MARIA EUGENIA; Protocol Stop: 06/23/20 04:59 Last Infusion: 06/15/20 06:13 Dose: 0 mls/hr Documented by: [id number] Admin: 06/15/20 05:08 Dose: 250 mls/hr Documented by: [id number] Infusion: 06/14/20 22:33 Dose: 0 mls/hr Documented by: [id number] Infusion: 06/14/20 21:54 Dose: 0 mls/hr Documented by: [id number] Admin: 06/14/20 20:49 Dose: 250 mls/hr Documented by: [id number] Infusion: 06/14/20 14:12 Dose: 0 mls/hr Documented by: [id number] Admin: 06/14/20 13:07 Dose: 250 mls/hr Documented by: [id number] Infusion: 06/14/20 06:45 Dose: 0 mls/hr Documented by: [id number] Admin: 06/14/20 05:40 Dose: 250 mls/hr Documented by: [id number] Infusion: 06/13/20 21:50 Dose: 0 mls/hr Documented by: [id number] Admin: 06/13/20 20:23 Dose: 250 mls/hr Documented by: [id number] Infusion: 06/13/20 14:00 Dose: 0 mls/hr Documented by: [id number] Admin: 06/13/20 12:44 Dose: 250 mls/hr Documented by: [id number] Infusion: 06/13/20 07:35 Dose: 0 mls/hr Documented by: [id number] Admin: 06/13/20 06:20 Dose: 250 mls/hr Documented by: [id number] Vancomycin HCl 1,750 mg/ (Sodium Chloride) 535 mls @ 200 mls/hr IV Q10H MARIA EUGENIA Stop: 06/23/20 03:59 Last Infusion: 06/13/20 05:28 Dose: 0 mls/hr Documented by: [id number] Admin: 06/13/20 02:38 Dose: 200 mls/hr Documented by: [id number] Ondansetron HCl (Ondansetron Inj 2 Mg/Ml 2 Ml Vial) 4 mg IV Q6H PRN PRN Reason: nausea Stop: 07/13/20 00:42 Last Admin: 06/13/20 15:37 Dose: 4 mg Documented by: [id number] Topiramate (Topiramate 25 Mg Tab) 25 mg PO HS MARIA EUGENIA Stop: 07/13/20 00:42 Last Admin: 06/14/20 20:42 Dose: 25 mg Documented by: [id number] Admin: 06/13/20 20:23 Dose: 25 mg Documented by: [id number] Admin: 06/13/20 02:37 Dose: 25 mg Documented by: [id number] Discharge Plan Visit Data Chief Complaint: Headache Stated Complaint: HEADACHE,WEAK,DIZZY,HEARING/VISION ISSUES ED Provider: Milena Trent Discharge Problem: Aseptic meningitis, Positional headache Patient Disposition: Admitted As Inpatient Discharge Instructions Interventions: ED Discharge Assessment Last Done: 06/13/20 00:12
--- NOTE | 2020-06-13 13:57 | Electrocardiogram Report ---
Test Reason : Blood Pressure : / mmHG Vent. Rate : 082 BPM Atrial Rate : 082 BPM P-R Int : 118 ms QRS Dur : 086 ms QT Int : 356 ms P-R-T Axes : 020 030 007 degrees QTc Int : 415 ms Normal sinus rhythm Normal ECG No previous ECGs available Confirmed by Terrance Pitts ([id number]) on 06/13/2020 1:56:46 PM Referred By: Confirmed By:Edd Pitts
--- NOTE | 2020-06-13 14:19 | Hospitalist Progress Note ---
Date of Service June 13, 2020 Assessment & Plan (1) Aseptic meningitis: Aseptic meningitis MRI Brain:No acute infarction. Several small foci of subcortical white matter T2 weighted hyperintensities bilaterally, the largest LEFT posterior frontal lobe, broad differential diagnosis as above. CSF Gram stain/Culture: Many WBCs seen. No organisms seen. No negative to date. Lyme screen pending Negative Covid screen CSF: WBC 156, protein 48 and CSF PCR positive for VZV IV vancomycin, ceftriaxone discontinued Continue IV acyclovir Continue gentle IV fluids Appreciate infectious disease input Await for neurology input Check HIV Screen as per ID Ascending aortic aneurysm Incidental finding on outpatient CTA --Head/Neck CTA on 06/08/20: No proximal large vessel occlusion or definitive focal aneurysm is identified. origin of the right posterior cerebral artery. No hemodynamically significant stenosis is identified within the common or extracranial internal carotid arteries. Ascending aorta measures 4 cm in diameter. Vascular surgery consultation and a CTA of the chest may be performed for further evaluation. Multilevel degenerative changes of the cervical spine as described, most prominent at C5-6. Nonspecific mildly enlarged bilateral segment II lymph nodes. Clinical correlation is recommended. --ECHO: Aortic root and proximal ascending aorta are normal size. --Advised to follow-up with vascular surgery as outpatient --Check lipid panel Morbid obesity BMI 48 Counseled on lifestyle changes DVT Px: SCDs Encourage to ambulate Code status Full Code Disposition Expected discharge home when medically stable Admission and Anticipated Discharge Date Admission Date: June 12, 2020 Subjective Patient is seen and examined at bedside Headache, neck stiffness slightly better today Denies photophobia, phonophobia Also denies chest pain, dyspnea, dizziness, abdominal pain Offers no other complaints Review of Systems Review of Systems: All systems reviewed & are unremarkable except as noted in HPI & below Physical Exam Physical Exam: Physical Exam: Vitals signs as noted above General Appearance:Morbidly Obese, no apparent distress Head: normocephalic, Atraumatic Eyes: normal inspection, EOMI Neck: supple, Trachea midline Respiratory/Chest: Decreased breath sounds, CTA, No accessory muscle use Cardiovascular: S1, S2, No murmur Chest:Right chest vesicular rash Abdomen/GI:Soft, Non tender, Bowel sounds present Extremities/Musculoskelatal:normal inspection, Trace pedal edema Neurologic/Psych:AAOX3, grossly no focal neurological deficits Skin: normal color, warm Results & Data Results & Data ([facility]) Vital Signs (Past 12 Hours) Vital Signs Temp Pulse Pulse Resp BP Pulse Ox 06/13/20 11:45 36.8 C 76 20 110/76 95 06/13/20 08:09 37.0 C 89 20 116/76 97 06/13/20 07:00 90 Laboratory Results Short CBC 06/12/20 06/13/20 Range/Units 14:25 06:20 WBC 11.10 H 10.45 (4.8-10.8) K/uL Hgb 15.1 14.3 (12.0-16.0) g/dL Hct 44.3 41.8 (37-47) % Plt Count 366 346 (130-400) K/uL BMP 06/12/20 06/13/20 14:25 06:20 Sodium 136 137 Potassium 4.0 4.0 Chloride 105 108 H Carbon Dioxide 27 24 BUN 12 12 Creatinine 0.92 0.83 Glucose 111 H 103 H Calcium 8.9 8.1 L Liver Function 06/12/20 Range/Units 14:25 Total Bilirubin 0.5 (0.2-1) mg/dl AST 9 L (15-37) U/L ALT 40 (12-78) U/L Alkaline Phosphatase 107 (45-117) U/L Albumin 3.7 (3.4-5.0) gm/dl Urine 06/12/20 Range/Units 20:13 Urine Color Yellow Urine Appearance Clear (Clear) Urine pH 5.0 (4.5-7.5) Ur Specific [place] 1.017 (1.000-1.030) Urine Protein Negative (Negative) Urine Glucose (UA) Negative (Negative)
--- NOTE | 2020-06-13 15:16 | Neurology Consultation ---
Date of Consultation June 13, 2020 Assessment & Plan (1) Aseptic meningitis: 1. continue acyclovir IV is preferred but oral Vancyclovir per ID consult may be effective. 2. IV home doses would be preference if insurance will cover Present on Admission?: Yes (2) Migraine headache with aura: 1. topamax 25 mg hs x 7 days then increase to 50 mg hs 2. keep well hydrated and would stay flat as much as possible may be also be developing post LP headache 3. avoid triptans 4. gabapentin 100 mg prn with tylenol or motrin may help with headache 5. would limit activity when she is home- if positional headache persists may need a blood patch. 6. follow up in neurology with Dr Corea in 2 weeks. Present on Admission?: Yes Supervising Physician Co-Signing Physician Notes Patient was seen and examined. Discussed with Sofy Jain PA-C and agree with recommendations as noted below. A 44 yo woman with migraine headaches and aseptic meningitis or VZV meningitis. Appreciate ID recommendations. Patient appears in no distress and vert pleasant. Headache currently relieved with Tylenol. Has mild vesicular rash on right side of chest. Agree with starting Topamax for headache prevention. While inpatient can give Toradol 30 mg IV Q12 hr for severe headache. History of Present Illness Reason for Consultation: intractable headache, meningitis Requesting Physician: Kelton Grier MD Attending Physician: Kelton Grier MD History of Present Illness Karen is a 44 female with a PHM- migraines who presented to [facility] with headache and malaise. She had a 10 day history 06/02- of fever rash on her chest and headache. The rash was only on right side of her chest and was on her shoulder. There were several vesicales that were very itchy and red almost like the appearance of acne. her headache was worse then usual and she felt overall unwell. at night she developed chills. Then on 06/06, she noted flashes in her one eye and then the other eye and muffled hearing. she then went to the ED at [facility], where MRI was done. She was discharged and followed up with neurology next day. She had another MRI and CTA head done as well. She was prescribed topamax and prednisone and was advised to closely follow up with health care providers. then on 06/12/20 she felt worse overall, very weak, hardly able to stand and was advised to go back to the ED. She also reports some discomfort when bending her neck, feels some pain down the spine. She had an LP which showed VZV with no increase opening pressure and started on Acyclovir. She is currently having a bad headache and just not feeling well. the LP site was burning this am and when she got up to wash up the headache got worse. denies new bowel or bladder issues, vision changes, N, V. +neck and head pain Allergies Allergy/AdvReac Type Severity Reaction Status Date / Time Sulfa (Sulfonamide Allergy Intermediate Rash Verified 06/12/20 16:37 Antibiotics) latex Allergy Mild Rash Verified 06/12/20 16:12 Narcotics AdvReac Intermediate Nausea,vomiting Uncoded 06/12/20 16:37 and chest pain Home Medications Medication Instructions Recorded Confirmed Type prochlorperazine maleate 10 mg PO Q8H PRN 06/12/20 06/12/20 History rizatriptan 10 mg PO DIRECTED PRN MDD 20 06/12/20 06/12/20 History MG/24 HOURS topiramate 25 mg PO HS 06/12/20 06/12/20 History trazodone 50 mg PO .HOLD 06/12/20 06/12/20 History Patient History Medical History (Updated 06/13/20 @ 16:23 by Sofy Jain PA-C) Migraine with aura Surgical History (Updated 06/12/20 @ 21:10 by Chet Hines MD) History of History of carpal tunnel surgery History of esophagogastroduodenoscopy (EGD) History of partial hysterectomy Hx of removal of ovary S/P colonoscopy Family History (Updated 06/12/20 @ 21:08 by Chet Hines MD) Mother Breast cancer Sister Breast cancer Brother Diabetes Father Diabetes Father Hypertension Daughter Asthma Mother Migraines Daughter Migraines Social History Smoking Status: Current every day smoker Tobacco Cessation Education Requested by Patient: No Hx Alcohol Use: Yes Hx Substance Use: No Preferred Language: Trinidadian Communication Ability: Effective Beliefs That Will Affect Care: None Current Living Situation: Spouse Other Information That Helps Us Care for You: No Feels Safe at Home: Yes Safety Concerns: Feels Safe At This Time Assistive Devices: None Review of Systems Review of Systems: All systems reviewed & are unremarkable except as noted in HPI & below Physical Exam Physical Exam: Physical Exam: Constitutional: appearance over nourished, healthy Ears, Nose, Mouth and Throat: mucous membranes moist, no injection and skin normal, eyes normal Cardiovascular: normal S-1 and S-2 and regular rate and rhythm Respiratory: clear to auscultation (CTA) and no rales, rhonchi or wheeze Musculoskeletal: no peripheral edema and good distal pulses Skin: scabbed right macular lesions above breast Eyes: extraocular muscles intact (EOMI) and pupils equal, round and reactive to light (PERRL) NEUROLOGIC EXAMINATION: Mental status: Alert and interactive Oriented to full date and location Oriented to person Speech fluent with no evidence of aphasia Cranial Nerves facial symmetry Reflexes: Deep tendon reflexes were symmetrical and graded 2/5. Sensory: light touch intact Coordination: finger to nose bilaterally Gait/Stance: Posture normal. Motor: Negative for pronator drift of out stretched arms with eyes closed. 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) Vital Signs (Past 12 Hours) Vital Signs Temp Pulse Pulse Resp BP Pulse Ox 06/13/20 11:45 36.8 C 76 20 110/76 95 06/13/20 08:09 37.0 C 89 20 116/76 97 06/13/20 07:00 90 Laboratory Results Abnormal lab results 06/12/20 06/12/20 06/12/20 Range/Units 17:00 17:00 17:00 Chloride (98-107) mmol/L Glucose (70-99) mg/dl Calcium (8.5-10.1) mg/dl CSF WBC 156 H* (0-5) /uL CSF Total Protein 48.8 H (15-45) mg/dl CSF VZV DNA (PCR) DETECTED A* (NotDetected) 06/13/20 Range/Units 06:20 Chloride 108 H (98-107) mmol/L Glucose 103 H (70-99) mg/dl Calcium 8.1 L (8.5-10.1) mg/dl CSF WBC (0-5) /uL CSF Total Protein (15-45) mg/dl CSF VZV DNA (PCR) (NotDetected) Diagnostic Findings LP-Opening pressure was 15 cm H2O. imaging reports from [facility] Brain MRI w/o contrast 06/06/20: IMPRESSION: 1. No acute infarction. 2. Several small foci of subcortical white matter T2 weighted hyperintensities bilaterally, the largest LEFT posterior frontal lobe, broad differential diagnosis as above. Brain MRI w/ contrast 06/08/20: IMPRESSION: 1. No pathologic enhancement of the head detected. No evidence of intracranial hypotension. 2. Given presence of white matter lesions, hearing and vision disturbance along with patient demographics, consider further clinical assessment to exclude Susac syndrome Head/Neck CTA 06/08/20: IMPRESSION: 1. No proximal large vessel occlusion or definitive focal aneurysm is identified. 2. origin of the right posterior cerebral artery. 3. No hemodynamically significant stenosis is identified within the common or extracranial internal carotid arteries. 4. Ascending aorta measures 4 cm in diameter. Vascular surgery consultation and a CTA of the chest may be performed for further evaluation. 5. Multilevel degenerative changes of the cervical spine as described, most prominent at C5-6. 6. Nonspecific mildly enlarged bilateral segment II lymph nodes. Clinical correlation is recommended.
[2020-06-13] MEDS: ACETAMINOPHEN 325 MG TAB PO PRN (15:37)
[2020-06-14] MEDS: ACETAMINOPHEN 325 MG TAB PO PRN ×2 (05:39→16:47)
[2020-06-14] MEDS: DEXTROSE 5% IV SCH ×3 (05:40→20:49)
[2020-06-14] MEDS: ACYCLOVIR SOD IV SCH ×3 (05:40→20:49)
[2020-06-14 06:47] LABS: Basophils # (auto) 0.03 K/uL (0-0.2); Basophils % (auto) 0.3 %; Eosinophils # (auto) 0.09 K/uL (0-0.5); Hematocrit (blood only) 38.9 % (37-47); Hemoglobin 12.8 g/dL (12.0-16.0); Immature Granulocytes # (auto) 0.03 K/uL (0.00-0.02); Immature Granulocytes % (auto) 0.3 %; Lymphocytes # (auto) 2.59 K/uL (1.2-3.4); Mean Corpuscular Hemoglobin 31.1 pg (25-34); Mean Corpuscular Hgb Conc 32.9 g/dL (32-36); Mean Corpuscular Volume 94.6 fL (80-100); Mean Platelet Volume 9.3 fL (7.4-10.4); Monocytes # (auto) 0.79 K/uL (0.11-0.59); Monocytes % (auto) 9.2 %; Neutrophils % (auto) 59.2 %; Platelet Count 308 K/uL (130-400); RDW Coefficient of Variation 13.4 % (11.5-14.5); RDW Standard Deviation 46.9 fL (36.4-46.3); Red Blood Count 4.11 M/uL (4.2-5.4); White Blood Count 8.63 K/uL (4.8-10.8)
[2020-06-14 07:24] LABS: BUN Creatinine Ratio 11.2 (10-20); Calcium 8.1 mg/dl (8.5-10.1); Creatinine Clr Calc Pharmacy 118.4 ml/min; Est GFR (African American) 103.1; Magnesium 2.1 mg/dl (1.8-2.4)
[2020-06-14] MEDS ORDERED: VANCOMYCIN TROUGH ONE (09:30)
--- NOTE | 2020-06-14 15:40 | Hospitalist Progress Note ---
Date of Service June 14, 2020 Assessment & Plan (1) Aseptic meningitis: Aseptic meningitis MRI Brain:No acute infarction. Several small foci of subcortical white matter T2 weighted hyperintensities bilaterally, the largest LEFT posterior frontal lobe, broad differential diagnosis as above. CSF Gram stain/Culture: Many WBCs seen. No organisms seen. No negative to date. Lyme screen pending Negative Covid screen CSF: WBC 156, protein 48 and CSF PCR positive for VZV HIV Screen:Negative IV vancomycin, ceftriaxone discontinued Continue IV acyclovir-- To complete 2 week course (Last Day 06/26/20) Received IV fluids Appreciate infectious disease, Neurology input Needs follow up with Neurology upon discharge Ascending aortic aneurysm Incidental finding on outpatient CTA --Head/Neck CTA on 06/08/20: No proximal large vessel occlusion or definitive focal aneurysm is identified. origin of the right posterior cerebral artery. No hemodynamically significant stenosis is identified within the common or extracranial internal carotid arteries. Ascending aorta measures 4 cm in diameter. Vascular surgery consultation and a CTA of the chest may be performed for further evaluation. Multilevel degenerative changes of the cervical spine as described, most prominent at C5-6. Nonspecific mildly enlarged bilateral segment II lymph nodes. Clinical correlation is recommended. --ECHO: Aortic root and proximal ascending aorta are normal size. --Advised to follow-up with vascular surgery as outpatient Morbid obesity BMI 48 Counseled on lifestyle changes DVT Px: SCDs Encourage to ambulate Code status Full Code Disposition Expected discharge home when medically stable Admission and Anticipated Discharge Date Admission Date: June 12, 2020 Subjective Patient is seen and examined at bedside States feeling better today Headache slightly improved when compared to yesterday Continues to have neck stiffness Offers no other complaints Denies chest pain, dyspnea, dizziness, abdominal pain Afebrile today Review of Systems Review of Systems: All systems reviewed & are unremarkable except as noted in HPI & below Physical Exam Physical Exam: Physical Exam: Vitals signs as noted above General Appearance:Morbidly Obese, no apparent distress Head: normocephalic, Atraumatic Eyes: normal inspection, EOMI Neck: supple, Trachea midline Respiratory/Chest: Decreased breath sounds, CTA, No accessory muscle use Cardiovascular: S1, S2, No murmur Chest:Right chest vesicular rash Abdomen/GI:Soft, Non tender, Bowel sounds present Extremities/Musculoskelatal:normal inspection, Trace pedal edema Neurologic/Psych:AAOX3, grossly no focal neurological deficits Skin: normal color, warm Results & Data Results & Data ([facility]) Vital Signs (Past 12 Hours) Vital Signs Temp Pulse Resp BP Pulse Ox 06/14/20 11:39 36.7 C 88 16 131/69 96 06/14/20 07:51 36.7 C 76 16 129/87 100 06/14/20 04:00 36.5 C 71 16 118/87 98 Laboratory Results Short CBC 06/14/20 Range/Units 06:07 WBC 8.63 (4.8-10.8) K/uL Hgb 12.8 (12.0-16.0) g/dL Hct 38.9 (37-47) % Plt Count 308 (130-400) K/uL BMP 06/14/20 06:07 Sodium 138 Potassium 4.0 Chloride 108 H Carbon Dioxide 26 BUN 9 Creatinine 0.81 Glucose 113 H Calcium 8.1 L
--- NOTE | 2020-06-14 15:43 | Neurology Progress Note ---
Date of Service June 14, 2020 Assessment & Plan (1) Aseptic meningitis: 1. continue acyclovir IV is preferred but oral Vancyclovir per ID consult may be effective. 2. IV home doses with nursing training is arranged. (2) Migraine headache with aura: 1. topamax 25 mg hs x 7 days then increase to 50 mg hs 2. keep well hydrated and would stay flat as much as possible may be also be developing post LP headache 3. avoid triptans 4. gabapentin 100 mg prn with tylenol or motrin may help with headache 5. would limit activity when she is home- if positional headache persists may need a blood patch. no strenuous activity for a week ease into activities after this. limit screen time 6. follow up in neurology with Dr Corea in 2 weeks. will arrange for patient will be available for any further management as needed Admission and Anticipated Discharge Date Admission Date: June 12, 2020 Supervising Physician Co-Signing Physician Notes Patient was seen and examined this afternoon. at bedside. Discussed with Sofy Jain PA-C and agree with plan as noted below. Patient currently r eports feeling much better and headaches well controlled. PIC line in place in right forearm. Recommend to continue to Topamax for headache prophylaxis and MAxalt as needed. Advised to take Maxalt early in attack and repeat in 2 hours if needed. Can also take with Aleve if needed. Antiviral plan per ID recommendations. Plan to discharge tomorrow. Please call with any additional questions or concerns. Orlando Jones is a 44 female with a PHM- migraines who presented to [facility] with headache and malaise. She had a 10 day history 06/02- of fever rash on her chest and headache. The rash was only on right side of her chest and was on her shoulder. There were several vesicales that were very itchy and red almost like the appearance of acne. her headache was worse then usual and she felt overall unwell. at night she developed chills. Then on 06/06, she noted flashes in her one eye and then the other eye and muffled hearing. she then went to the ED at [facility], where MRI was done. She was discharged and followed up with neurology next day. She had another MRI and CTA head done as well. She was prescribed topamax and prednisone and was advised to closely follow up with health care providers. then on 06/12/20 she felt worse overall, very weak, hardly able to stand and was advised to go back to the ED. She also reports some d iscomfort when bending her neck, feels some pain down the spine. She had an LP which showed VZV with no increase opening pressure and started on Acyclovir. Her headache is better and not as pounding as it was before. She is going home tomorrow with IV antibiotics and PICC line. Discussed waiting a week to start back to work and give herself time to heal. denies new bowel or bladder issues, vision changes, N, V. +neck and head pain Review of Systems Review of Systems: All systems reviewed & are unremarkable except as noted in HPI & below Physical Exam Physical Exam: Physical Exam: Constitutional: appearance over nourished, healthy Ears, Nose, Mouth and Throat: mucous membranes moist, no injection and skin normal, eyes normal Cardiovascular: normal S-1 and S-2 and regular rate and rhythm Respiratory: clear to auscultation (CTA) and no rales, rhonchi or wheeze Musculoskeletal: no peripheral edema and good distal pulses Skin: scabbed right macular lesions above breast Eyes: extraocular muscles intact (EOMI) and pupils equal, round and reactive to light (PERRL) NEUROLOGIC EXAMINATION: Mental status: Alert and interactive Oriented to full date and location Oriented to person Speech fluent with no evidence of aphasia Cranial Nerves facial symmetry Reflexes: Deep tendon reflexes were symmetrical and graded 2/5. Sensory: light touch intact Coordination: finger to nose bilaterally Gait/Stance: Posture normal. Motor: Negative for pronator drift of out stretched arms with eyes closed. 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 5/5, hip flex 5/5 Results & Data ([facility]) Vital Signs (Past 12 Hours) Vital Signs Temp Pulse Resp BP Pulse Ox 06/14/20 15:41 37.0 C 90 20 142/84 H 97 06/14/20 11:39 36.7 C 88 16 131/69 96 06/14/20 07:51 36.7 C 76 16 129/87 100 06/14/20 04:00 36.5 C 71 16 118/87 98 Laboratory Results Abnormal lab results 06/14/20 06/14/20 Range/Units 06:07 06:07 RBC 4.11 L (4.2-5.4) M/uL RDW Std Deviation 46.9 H (36.4-46.3) fL Price # (Auto) 0.79 H (0.11-0.59) K/uL Immature Gran # (Auto) 0.03 H (0.00-0.02) K/uL Chloride 108 H (98-107) mmol/L Glucose 113 H (70-99) mg/dl Calcium 8.1 L (8.5-10.1) mg/dl Triglycerides 218 H (0-150) mg/dl Diagnostic Findings no new imaging
[2020-06-14] MEDS: TOPIRAMATE 25 MG TAB PO SCH (20:42)
[2020-06-15] MEDS: DEXTROSE 5% IV SCH (05:08)
[2020-06-15] MEDS: ACYCLOVIR SOD IV SCH (05:08)
[2020-06-15 08:01] LABS: Basophils # (auto) 0.02 K/uL (0-0.2); Basophils % (auto) 0.2 %; Eosinophils # (auto) 0.11 K/uL (0-0.5); Eosinophils % (auto) 1.3 %; Hematocrit (blood only) 39.4 % (37-47); Hemoglobin 13.3 g/dL (12.0-16.0); Immature Granulocytes # (auto) 0.03 K/uL (0.00-0.02); Immature Granulocytes % (auto) 0.4 %; Lymphocytes # (auto) 2.66 K/uL (1.2-3.4); Lymphocytes % (auto) 32.2 %; Mean Corpuscular Hemoglobin 31.7 pg (25-34); Mean Corpuscular Hgb Conc 33.8 g/dL (32-36); Monocytes # (auto) 0.84 K/uL (0.11-0.59); Monocytes % (auto) 10.2 %; Neutrophils % (auto) 55.7 %; Platelet Count 307 K/uL (130-400); RDW Coefficient of Variation 13.3 % (11.5-14.5); RDW Standard Deviation 45.8 fL (36.4-46.3); Red Blood Count 4.19 M/uL (4.2-5.4); White Blood Count 8.26 K/uL (4.8-10.8)
[2020-06-15 08:36] LABS: Calcium 8.9 mg/dl (8.5-10.1); Creatinine Clr Calc Pharmacy 129.4 ml/min; Est GFR (Non-African American) 99.2; Magnesium 2.2 mg/dl (1.8-2.4); Potassium 3.9 mmol/L (3.5-5.1)
--- NOTE | 2020-06-15 10:31 | Discharge Summary ---
Date of Service June 15, 2020 Admission HPI Per Admitting Provider Mrs. Figueredo is a 44 y/o F w/hx of migraines who presents with headache and malaise. Pt reports that 10 days ago (06/02-06/03) she developed fever, rash on her chest and a headache. Rash was only on the right side of her chest started at sternum and went upward toward her shoulder, there were several vesicules that very itchy red but almost looked like acne. Her headache was worse than usual and she felt overall unwell. At night she developed chills. In several days later on 06/06, she noted flashes in her one eye and then the other eys as well. She developed muffled hearing. This was concerning for her so presented in the ED at [facility], where MRI was done. She was discharged and followed up with neurology next day. She had another MRI and CTA head done as well. She was prescribed topamax and prednisone and was advised to closely follow up with health care providers. Today however she felt worse overall, very weak, hardly able to stand. She feels that her headache is somewhat better actually but ov erall she feels worse. She also reports some discomfort when bending her neck, feels some pain down the spine. She called neurology about her symptoms and was advised to present to the ED. In the ED LP was obtained and pt was started on IV antiobiotics for presumed poss. meningitis. Admission Exam Per Admitting Provider Physical Exam Constitutional: WD/WN, vitals as above + obese Eyes: PERRL, conjunctivae normal, anicteric sclerae ENMT: external ear and nose normal, oropharynx normal Neck: trachea midline, no thyromegaly normal visual inspection Respiratory: normal respiratory effort, lungs clear to auscultation Auscultation: no crackles, no rhonchi and no wheezes Cardiovascular: RRR, no murmur, no edema Chest (Breasts): Chest: normal inspection of chest Gastrointestinal (Abdomen): Inspection/Auscultation: abdomen normal to inspection and normal bowel sounds; abdomen not distended Percussion/Palpation: abdomen soft; abdomen nontender, no guarding and abdomen not rigid Musculoskeletal: no cyanosis or clubbing, extremities motor strength 5/5 Head/Neck/Chest: normocephalic and head atraumatic Skin: + rash (right upper chest, dried vesicles) Neurologic: PERRL, EOMI, accommodation nl, no face palsy, no dysarthria moves all extremities and awake Motor/Sensory: no tremor neck flexion causes discomfort down the spine Psychiatric: A+Ox3, euthymic affect Genitourinary: no CVA tenderness Lymphatic: no lymphedema Principal Diagnosis Aseptic meningitis Ascending aortic aneurysm Discharge Data Allergies Allergy/AdvReac Type Severity Reaction Status Date / Time Sulfa (Sulfonamide Allergy Intermediate Rash Verified 06/12/20 16:37 Antibiotics) latex Allergy Mild Rash Verified 06/12/20 16:12 Narcotics AdvReac Intermediate Nausea,vomiting Uncoded 06/12/20 16:37 and chest pain Consultations 06/12/20 18:57 ED Decision to Admit Stat 06/13/20 00:43 Consult Infectious Diseases Routine Consult Neurology Routine Procedures Performed MRI Brain:No acute infarction. Several small foci of subcortical white matter T2 weighted hyperintensities bilaterally, the largest LEFT posterior frontal lobe, broad differential diagnosis as above. ECHO: Aortic root and proximal ascending aorta are normal size. Ordered Studies 06/12/20 15:40 FL lumbar puncture diagnostic Stat Hospital Course (1) Aseptic meningitis: Aseptic meningitis MRI Brain:No acute infarction. Several small foci of subcortical white matter T2 weighted hyperintensities bilaterally, the largest LEFT posterior frontal lobe, broad differential diagnosis as above. CSF Gram stain/Culture: Many WBCs seen. No organisms seen. No negative to date. Lyme screen pending Negative Covid screen CSF: WBC 156, protein 48 and CSF PCR positive for VZV CSF Culture: No growth HIV Screen:Negative IV vancomycin, ceftriaxone discontinued Continue IV acyclovir-- To complete 2 week course (Last Day 06/26/20) Received IV fluids Appreciate infectious disease, Neurology input Needs follow up with Neurology upon discharge Continue current management Ascending aortic aneurysm Incidental finding on outpatient CTA --Head/Neck CTA on 06/08/20: No proximal large vessel occlusion or definitive focal aneurysm is identified. origin of the right posterior cerebral artery. No hemodynamically significant stenosis is identified within the common or extracranial internal carotid arteries. Ascending aorta measures 4 cm in diameter. Vascular surgery consultation and a CTA of the chest may be performed for further evaluation. Multilevel degenerative changes of the cervical spine as described, most prominent at C5-6. Nonspecific mildly enlarged bilateral segment II lymph nodes. Clinical correlation is recommended. --ECHO: Aortic root and proximal ascending aorta are normal size. --Advised to follow-up with vascular surgery as outpatient Morbid obesity BMI 48 Counseled on lifestyle changes DVT Px: SCDs Encourage to ambulate Code status Full Code Disposition Plan to discharge home today Total Time Total Time Spent Total Time Spent (In Minutes): 44 minutes Total Time Includes: Examination of the Patient, Discharge Planning, Medication Reconciliation, Communication With Other Providers and Other Discharge Plan Discharge Items Patient Disposition: Home - Self-Care Reason For Visit: HEADACHE, MENINGITIS Discharge Diagnosis: Aseptic meningitis Ascending aortic aneurysm Activity: Per Instructions section Exercise/Sports: Wait until after follow-up appointment Non-emergency contact: Primary Care Provider and Neurologist Call non-emergency contact if: you have any medication questions, your symptoms worsen, your pain is not controlled, your pain is concerning for you and you have a fever Follow-up/Referrals: Rebeca Fontana MD [Primary Care Provider] - (Date & Time 06/20/2020 10:00 AM Provider Rebeca Fontana MD [facility] ) Sofy Corea MD [Physician] - Diet: Regular Addtl Attending Provider Instructions: Follow-up with your primary care physician on 06/20/2020 10:00 AM as scheduled Follow up with your Neurologist Dr Corea in 2 weeks as advised Follow up with your vascular surgeon for further evaluation of ascending aortic aneurysm as advised Completed antiviral therapy: IV acyclovir to complete 2-week course as recommended by your infectious disease DrChritsoph Caba at [facility] Get weekly blood test (CBC, CMP, ESR) and follow up with your physician with results. You can increase Topamax to 50 mg at bedtime if your headache remains uncontrolled as instructed by your neurologist. Seek immediate medical attention if your symptoms reoccur or worsen Pending Studies at Discharge: No Stand-Alone Forms: [facility], Work/School Release (Inpt), Smoking Cessation Medications and DC Order Prescriptions: New Acyclovir Consult Active 1 dose Not Applicable UD PRNQty: 0 RF: 0 Continued trazodone 50 mg tablet 50 mg PO .HOLD RF: 0 prochlorperazine maleate 10 mg tablet 10 mg PO Q8H PRN (Reason: Nausea) RF: 0 topiramate 50 mg tablet 25 mg PO HS RF: 0 Discontinued rizatriptan 10 mg tablet 10 mg PO DIRECTED MDD 20 MG/24 HOURS PRN (Reason: Migraine Headache) RF: 0 Discharge Orders: Discharge Order (Routine); Ordered 06/15/20 Ordered By: Kelton Grier Admission Data Admit Date/Time: 06/12/20 19:42 Attending Provider: Kelton Grier Admit Provider: Chet Hines Primary Care Provider: Rebeca Fontana Other Providers: Chet Hines ; Ayaz Huggins ; Yahir Maria ; Stu Hill I. ; Roberto Dillard II ; Melina Diaz ; Edgardo Johnson ; Brandon Valverde ; [facility], [facility] Other Interventions: Discharge Summary Assessment (RN) Last Done: 06/15/20 11:05
--- NOTE | 2020-06-15 10:31 | Hospitalist Progress Note ---
Date of Service June 15, 2020 Assessment & Plan (1) Aseptic meningitis: Aseptic meningitis MRI Brain:No acute infarction. Several small foci of subcortical white matter T2 weighted hyperintensities bilaterally, the largest LEFT posterior frontal lobe, broad differential diagnosis as above. CSF Gram stain/Culture: Many WBCs seen. No organisms seen. No negative to date. Lyme screen pending Negative Covid screen CSF: WBC 156, protein 48 and CSF PCR positive for VZV CSF Culture: No growth HIV Screen:Negative IV vancomycin, ceftriaxone discontinued Continue IV acyclovir-- To complete 2 week course (Last Day 06/26/20) Received IV fluids Appreciate infectious disease, Neurology input Needs follow up with Neurology upon discharge Continue current management Ascending aortic aneurysm Incidental finding on outpatient CTA --Head/Neck CTA on 06/08/20: No proximal large vessel occlusion or definitive focal aneurysm is identified. origin of the right posterior cerebral artery. No hemodynamically significant stenosis is identified within the common or extracranial internal carotid arteries. Ascending aorta measures 4 cm in diameter. Vascular surgery consultation and a CTA of the chest may be performed for further evaluation. Multilevel degenerative changes of the cervical spine as described, most prominent at C5-6. Nonspecific mildly enlarged bilateral segment II lymph nodes. Clinical correlation is recommended. --ECHO: Aortic root and proximal ascending aorta are normal size. --Advised to follow-up with vascular surgery as outpatient Morbid obesity BMI 48 Counseled on lifestyle changes DVT Px: SCDs Encourage to ambulate Code status Full Code Disposition Plan to discharge home today Admission and Anticipated Discharge Date Admission Date: June 12, 2020 Subjective Patient is seen and examined at bedside No new complaints Less headache Neck stiffness continues to improve Denies chest pain, dyspnea, dizziness, abdominal pain, nausea, vomiting, change in vision Afebrile Review of Systems Review of Systems: All systems reviewed & are unremarkable except as noted in HPI & below Physical Exam Physical Exam: Physical Exam: Vitals signs as noted above General Appearance:Morbidly Obese, no apparent distress Head: normocephalic, Atraumatic Eyes: normal inspection, EOMI Neck: supple, Trachea midline Respiratory/Chest: Decreased breath sounds, CTA, No accessory muscle use Cardiovascular: S1, S2, No murmur Chest:Right chest vesicular rash Abdomen/GI:Soft, Non tender, Bowel sounds present Extremities/Musculoskelatal:normal inspection, Trace pedal edema Neurologic/Psych:AAOX3, grossly no focal neurological deficits Skin: normal color, warm Results & Data Results & Data ([facility]) Vital Signs (Past 12 Hours) Vital Signs Temp Pulse Pulse Resp BP Pulse Ox Pulse Ox 06/15/20 02:08 88 06/15/20 00:13 36.9 C 79 18 124/82 98 06/15/20 00:00 98 Laboratory Results Short CBC 06/15/20 Range/Units 07:48 WBC 8.26 (4.8-10.8) K/uL Hgb 13.3 (12.0-16.0) g/dL Hct 39.4 (37-47) % Plt Count 307 (130-400) K/uL BMP 06/15/20 07:48 Sodium 136 Potassium 3.9 Chloride 106 Carbon Dioxide 26 BUN 10 Creatinine 0.74 Glucose 99 Calcium 8.9
[2020-06-15 16:21] LABS: Lyme DNA PCR CSF or Synovial Not detected (Not Detected); Lyme DNA Source CSF
--- NOTE | 2020-06-19 18:09 | Coding Query ---
CODING QUERY To promote full compliance with coding requirements relating to patient care, provider participation is requested in all cases of rim roller operator uncertainty. Please assist us with the question(s) below: Coding Question(s): Patient admitted with headache. H/P states Varicella Meningitis. CSF positive for Varicella. Discharge Summary states Aseptic meninigitis. Please document the type of meningitis patient was treated for. Thanks for your help! Jose Fernández [facility] Physician's Response(s): Varicella Meningitis Principal Diagnosis: "that condition established after study, to be chiefly responsible for occasioning the admission of the patient to the hospital for care." Co-Existing Principal Diagnosis: "when two or more diagnoses equally meet the criteria for principal diagnosis as determined by the circumstances of admission, diagnostic work up, and/or therapy provided, and the Alphabetic Index, Tabular List, or another coding guideline does not provide sequencing direction, any one of the diagnoses may be sequenced first." "When the physician has documented what appears to be a current diagnosis in the body of the record, but has not included the diagnosis in the final diagnostic statement, the physician should be asked whether the diagnosis should be added." (Source [facility]oding [facility] 2 QTR90. p3-4) SHAR
== END 2020-06-15 12:10 | disposition home health service (06) | DRG 866 ==
LOC: ED 14:00 → 2S 19:42 → SUATTDRO 19:42 → 2S 06-13 00:12